=== PATIENT | female | born 1995 | race Asian ===

== ENCOUNTER 2017-12-26 20:57 | Emergency (ER) | payer MEDICAID ==
[~2017-12-26] VITALS: Ht 167.6 cm; Wt 51.7 kg
[2017-12-26 21:04] VITALS: Ht 167.6 cm; Wt 51.7 kg
[2017-12-27 00:11] VITALS: BP 110/74
== END 2017-12-27 00:11 | disposition home or self-care (01) ==
LOC: ED 20:57
DX: F41.0 Panic disorder [episodic paroxysmal anxiety] (principal); R20.2 Paresthesia of skin; T78.1XXA Other adverse food reactions, not elsewhere classified, initial encounter; X58.XXXA Exposure to other specified factors, initial encounter